=== PATIENT | female | born 1980 ===

== ENCOUNTER 2016-08-08 02:37 | Emergency (ER) | payer BC ==
--- NOTE | 2016-08-08 04:13 | ED ORDER SUMMARY ---
..... Patient: LAWRENCE FLORIAN OrderSheet [facility] VisitID: [id number] [address] [place] [address] 35y, F Registration Date/Time: 08/08/2016 ORDER SHEET Weight: 67.1 kg Allergies: Sulfa Antibiotics GENERAL ORDERS: UA-Culture if indicated Urgent (03:02 08/08/2016 Macarioden R.N. per protocol) (Ack 3:04 AMcQuoid ER Tech1) (3:14 AMcQuoid ER Tech1) MEDICATION ORDERS: Hydrocodone-APAP PO 5/325 mg (NOW) (04:10 08/08/2016 Melyssa PENALOZA) (Ack 4:12 RMarsden R.N.) (4:22 RMarsden R.N.) Levaquin PO 750 mg (NOW) (04:10 08/08/2016 Melyssa PENALOZA) (Ack 4:12 Hima R.N.) (4:22 RMshaynaden R.N.) IV FLUIDS: ORDER SHEET NOTES: [Electronically signed by Elaine Valdivia R.N. (05:38 08/08/2016)] [Electronically signed by Ari Pepper MD (23:45 08/10/2016)] [Electronically locked/signed by Elaine Valdivia R.N. (05:38 08/08/2016)]
--- NOTE | 2016-08-08 04:13 | ED NURSING NOTES ---
Clinical Report - Nurses [facility] [place] [address] [address] [place] [address] 08/08/2016 2:39 Patient: LAWRENCE FLORIAN TRIAGE Triage time 02:48. Acuity: LEVEL 3. Chief Complaint: PELVIC PAIN. 03:00 08/08/16. Alert. No acute distress. SEPSIS SCREEN: Sepsis Screen. Negative (no infection suspected/documented). MELISSA COMA SCORE: Melissa Coma Scale: 15- eyes open spontaneously (4); best verbal response- oriented x 4 (5); best motor response- obeys commands (6). --03:00 Elaine Valdivia R.N. 02:47 08/08/16. BP: 118/75 taken on the left arm, while sitting. HR: 80. RR: 14. O2 saturation: 100%. Temp: 98 F. Pain level now: 11/27. --03:00 Elaine Valdivia R.N. Weight: 67.1 kg. Height/Length: 68 inches. BMI: 22.5. --02:46 Elaine Valdivia R.N. Medications None. --02:57 Elaine Valdivia R.N. Allergies Sulfa Antibiotics. --02:57 Elaine Valdivia R.N. History Arrived by private vehicle. Historian: patient. Accompanied by mother. Onset. (Monday). ( Patient states she has persistent UTIs and yeast infections. She states she started having pain on Monday, and took some pills that she had from a previous UTI. She reports that medication "made it feel better for a little while and then it started hurting really bad".). She has had flank pain. ( urgency, frequency). Last oral intake by patient was dinner last night. PAST MEDICAL HX: Immunizations: up-to-date. ( Patient reports history of ovarian cysts.). SOCIAL HX: Never smoker. Occasional alcohol use. No drug use. FALL RISK ASSESSMENT: Fall risk assessment completed. No fall risk identified. NUTRITIONAL RISK ASSESSMENT: The nutritional risk assessment revealed no deficiencies. FUNCTIONAL ASSESSMENT: Functional assessment: no impairments noted. LEARNING NEEDS ASSESSMENT: The learning needs assessment revealed no barriers. SKIN INTEGRITY ASSESSMENT: Skin integrity risk assessment completed. No skin integrity risk identified. --03:00 Elaine Valdivia R.N. PROBLEMS: no known problems. ADDITIONAL SURGERIES: Breast Augmentation. . Knee Surgery. --02:58 Elaine Valdivia R.N. Interventions ID band on patient. To treatment room. --03:00 Elaine Valdivia R.N. PHYSICAL ASSESSMENT 03:01 08/08/16. Ambulatory to room. GENERAL / NEURO / PSYCH: Alert. Oriented X 4. Appears in no acute distress. HEENT: Mucous membranes are pink. RESPIRATORY: Respirations not labored. Breath sounds within normal limits. CVS: Capillary refill less than 2 seconds. GI / : Abdomen soft and nontender. Bowel sounds within normal limits. SKIN: Skin is warm and dry. --03:01 Elaine Valdivia R.N. NURSING PROGRESS NOTES 03:01 08/08/16. Patient gowned. Two patient identifiers checked. Call light placed in reach. Side rails up x 1. Bed placed in lowest position. Brakes of bed on. Patient ready for evaluation- chart flagged and notification provided. --03:01 Elaine Valdivia R.N. 04:06 08/08/16. BP: 110/69. HR: 71. RR: 15. O2 saturation: 98%. Temp: deferred. Pain level now: 9/10. --04:07 Elaine Valdivia R.N. 04:22 08/08/2016 Hydrocodone-APAP (Hydrocodone-Acetaminophen) PO 5/325 mg Tablets 1 tab given. Allergies verified, confirmed 5 rights and sedative warning given to the patient. --04:22 Elaine Valdivia R.N. 04:22 08/08/2016 Levaquin (Levofloxacin) PO Tablets 750 mg given. Allergies verified and confirmed 5 rights. --04:22 Elaine Valdivia R.N. 04:40 08/08/2016 Hydrocodone-APAP PO Response: no adverse reaction pain is improving. The patient feels better. 08/08/2016 04:42 BP: 112/79. HR: 72. RR: 14. O2 saturation: 100%. Pain level now: 5/10. --04:45 Elaine Valdivia R.N. 04:41 08/08/2016 Levaquin PO Response: no adverse reaction. 08/08/2016 04:42 BP: 112/79. HR: 72. RR: 14. O2 saturation: 100%. Pain level now: 07/27. --04:46 Elaine Valdivia R.N. DISPOSITION / DISCHARGE 04:43 08/08/16. No learning barriers present. Discharge instructions provided and reviewed with the patient. Reviewed warnings. Reviewed medication(s). Treatments reviewed. Reviewed diet. Patient verbalized understanding. Written instructions provided in Sinhala. The patient was discharged home and accompanied by parent. She left the Emergency Department ambulatory and via private vehicle. Parent driving. --04:43 Elaine Valdivia R.N. 04:42 08/08/16. BP: 112/79. HR: 72. RR: 14. O2 saturation: 100%. Temp: deferred. Pain level now: 07/27. --04:43 Elaine Valdivia R.N. Departure time: 04:44. --04:44 Elaine Valdivia R.N. Locked/Released at 08/08/2016 5:38 by Elaine Valdivia R.N.
--- NOTE | 2016-08-08 04:13 | ED CLINICAL REPORT ---
Clinical Report - Physicians/Mid Levels [facility] [address] [place] [address] 08/08/2016 2:39 Patient: LAWRENCE FLORIAN Time Seen: 03:17 Aug 08 2016. Arrived- By private vehicle. Historian- patient. CPT: ER phys charges level 4 (#[id number]). HISTORY OF PRESENT ILLNESS Chief Complaint: PELVIC PAIN. This started about 3 days [employer]; Onset. (Monday). ( Patient states she has persistent UTIs and yeast infections. She states she started having pain on Monday, and took some pills that she had from a previous UTI. She reports that medication "made it feel better for a little while and then it started hurting really bad".). She has had flank pain. ( urgency, frequency). Pt indicates that she had a recent yeast infection and it resolved with OTC medication. Shortly after started having dysuria and low abdominal cramping. NO vaginal discharge. and still present. The symptoms are described as moderate. Modifying factors- worsened by urination. Not relieved by anything. No pelvic pain, abnormal bleeding or vaginal discharge. She has had pain with urination and urgency of urination. The patient has had urinary frequency and hematuria. Similar symptoms previously: As bad. Diagnosis: pelvic pain, UTI and ovarian cyst. Recent medical care: Not recently seen/assessed. REVIEW OF SYSTEMS No nausea, vomiting, diarrhea, fever or chills. No sore throat, cough, difficulty breathing, chest pain or skin rash. All systems otherwise negative, except as recorded above. PAST HISTORY ( Breast Augmentation. . Knee Surgery. Ovarian cyst. Endometriosis). Urinary tract infection. Medications: None. Allergies: Sulfa Antibiotics. SOCIAL HISTORY Never smoker. Occasional alcohol use. No drug use. ADDITIONAL NOTES The nursing notes have been reviewed. PHYSICAL EXAM Vital Signs: 08/08/2016 02:47 BP: 118/75. HR: 80. RR: 14. O2 saturation: 100%. Temp: 98 F. Pain level now: 9/10. HEENT: Normal external inspection. ENT: Pharynx normal. Neck: Neck supple. CVS: Heart sounds normal. Respiratory: No respiratory distress. Breath sounds normal. Abdomen: Moderate tenderness in the suprapubic area and lower abdomen. No guarding. Bowel sounds normal. No mass. Back: Normal external inspection. No CVA tenderness. Skin: Normal skin color. No rash. Extremities: Extremities nontender. Neuro: Oriented X 3. LABS, X-RAYS, AND EKG Laboratory Tests: UA-Culture if indicated: (PERRY: 08/08/2016 02:58) ( MsgRcvd 08/08/2016 03:44) Final results Test Result Flag Units (Reference) URINE COLOR YELLOW URINE APPEARANCE TURBID URINE GLUCOSE NEGATIVE (NEGATIVE) URINE BILIRUBIN NEGATIVE (NEGATIVE) URINE KETONE NEGATIVE (NEGATIVE) URINE SPECIFIC GRAVITY 1.025 (1.010-1.030) URINE PH 6.0 (5.0-8.0) URINE PROTEIN 2+ (NEGATIVE) URINE UROBILINOGEN 0.2 EU/dL (0.2-1.0) URINE NITRITE POSITIVE (NEGATIVE) URINE BLOOD 3+ (NEGATIVE) URINE LEUK ESTERASE POSITIVE (NEGATIVE) URINE RBC >100 rbc/hpf (0-1) URINE WBC >100 wbc/hpf (0-1) URINE EPITHELIAL CELLS 0-1 EPI/hpf (0-5) URINE BACTERIA MODERATE (2+ TO 3+) (NONE SEEN) URINE COMMENT CULTURE INDICATED URINE CULTURES ARE SET-UP BASED ON THE FOLLOWING CRITERIA:POSITIVE NITRITEPOSITIVE LEUKOCYTE ESTERASEGREATER THAN 10 WHITE BLOOD CELLSMODERATE (2+) OR GREATER BACTERIA . PROGRESS AND PROCEDURES Course of Care: Vicodin 1 po Levaquin 750 mg po Patient is stable. Patient/family counseled. Disposition: Discharged. Condition: stable. CLINICAL IMPRESSION Acute urinary tract infection with cystitis. INSTRUCTIONS Drink plenty of fluids. No sexual contact. Warnings: Further evaluation is necessary. GENERAL WARNINGS: Return or contact your physician immediately if your condition worsens or changes unexpectedly, if not improving as expected, or if other problems arise. Prescription Medications: Hydrocodone/APAP 5mg / 325mg: take 1-2 orally every 6 hours as needed for pain. Dispense ten (10). No refill. Pyridium 200 mg: take 1 orally every 8 hours as needed for urinary problems. Dispense six (6). No refills. Substitution is permissible. Cipro 500 mg: take 1 tab orally every 12 hours for 7 days. Dispense fourteen (14). No refills. Substitution is permissible. Follow-up: Follow up with your doctor in two days if not better. Understanding of the discharge instructions verbalized by patient. Discharge instructions reviewed with and understanding was verbalized by parent. (Electronically signed by Ari Pepper MD 08/10/2016 23:45)
--- NOTE | 2016-08-08 04:13 | ED ORDER SUMMARY ---
..... Patient: LAWRENCE FLORIAN OrderSheet [facility] VisitID: [id number] [address] [place] [address] 35y, F Registration Date/Time: 08/08/2016 ORDER SHEET Weight: 67.1 kg Allergies: Sulfa Antibiotics GENERAL ORDERS: UA-Culture if indicated Urgent (03:02 08/08/2016 Macarioden R.N. per protocol) (Ack 3:04 AMcQuoid ER Tech1) (3:14 AMcQuoid ER Tech1) MEDICATION ORDERS: Hydrocodone-APAP PO 5/325 mg (NOW) (04:10 08/08/2016 Melyssa PENALOZA) (Ack 4:12 RMarsden R.N.) (4:22 RMarsden R.N.) Levaquin PO 750 mg (NOW) (04:10 08/08/2016 Melyssa PENALOZA) (Ack 4:12 Hima R.N.) (4:22 RMshaynaden R.N.) IV FLUIDS: ORDER SHEET NOTES: [Electronically signed by Elaine Valdivia R.N. (05:38 08/08/2016)] [Electronically signed by Ari Pepper MD (23:45 08/10/2016)] [Electronically locked/signed by Elaine Valdivia R.N. (05:38 08/08/2016)]
--- NOTE | 2016-08-08 04:13 | ED CLINICAL REPORT ---
Clinical Report - Physicians/Mid Levels [facility] [address] [place] [address] 08/08/2016 2:39 Patient: LAWRENCE FLORIAN Time Seen: 03:17 Aug 08 2016. Arrived- By private vehicle. Historian- patient. CPT: ER phys charges level 4 (#[id number]). HISTORY OF PRESENT ILLNESS Chief Complaint: PELVIC PAIN. This started about 3 days [employer]; Onset. (Monday). ( Patient states she has persistent UTIs and yeast infections. She states she started having pain on Monday, and took some pills that she had from a previous UTI. She reports that medication "made it feel better for a little while and then it started hurting really bad".). She has had flank pain. ( urgency, frequency). Pt indicates that she had a recent yeast infection and it resolved with OTC medication. Shortly after started having dysuria and low abdominal cramping. NO vaginal discharge. and still present. The symptoms are described as moderate. Modifying factors- worsened by urination. Not relieved by anything. No pelvic pain, abnormal bleeding or vaginal discharge. She has had pain with urination and urgency of urination. The patient has had urinary frequency and hematuria. Similar symptoms previously: As bad. Diagnosis: pelvic pain, UTI and ovarian cyst. Recent medical care: Not recently seen/assessed. REVIEW OF SYSTEMS No nausea, vomiting, diarrhea, fever or chills. No sore throat, cough, difficulty breathing, chest pain or skin rash. All systems otherwise negative, except as recorded above. PAST HISTORY ( Breast Augmentation. . Knee Surgery. Ovarian cyst. Endometriosis). Urinary tract infection. Medications: None. Allergies: Sulfa Antibiotics. SOCIAL HISTORY Never smoker. Occasional alcohol use. No drug use. ADDITIONAL NOTES The nursing notes have been reviewed. PHYSICAL EXAM Vital Signs: 08/08/2016 02:47 BP: 118/75. HR: 80. RR: 14. O2 saturation: 100%. Temp: 98 F. Pain level now: 9/10. HEENT: Normal external inspection. ENT: Pharynx normal. Neck: Neck supple. CVS: Heart sounds normal. Respiratory: No respiratory distress. Breath sounds normal. Abdomen: Moderate tenderness in the suprapubic area and lower abdomen. No guarding. Bowel sounds normal. No mass. Back: Normal external inspection. No CVA tenderness. Skin: Normal skin color. No rash. Extremities: Extremities nontender. Neuro: Oriented X 3. LABS, X-RAYS, AND EKG Laboratory Tests: UA-Culture if indicated: (PERRY: 08/08/2016 02:58) ( MsgRcvd 08/08/2016 03:44) Final results Test Result Flag Units (Reference) URINE COLOR YELLOW URINE APPEARANCE TURBID URINE GLUCOSE NEGATIVE (NEGATIVE) URINE BILIRUBIN NEGATIVE (NEGATIVE) URINE KETONE NEGATIVE (NEGATIVE) URINE SPECIFIC GRAVITY 1.025 (1.010-1.030) URINE PH 6.0 (5.0-8.0) URINE PROTEIN 2+ (NEGATIVE) URINE UROBILINOGEN 0.2 EU/dL (0.2-1.0) URINE NITRITE POSITIVE (NEGATIVE) URINE BLOOD 3+ (NEGATIVE) URINE LEUK ESTERASE POSITIVE (NEGATIVE) URINE RBC >100 rbc/hpf (0-1) URINE WBC >100 wbc/hpf (0-1) URINE EPITHELIAL CELLS 0-1 EPI/hpf (0-5) URINE BACTERIA MODERATE (2+ TO 3+) (NONE SEEN) URINE COMMENT CULTURE INDICATED URINE CULTURES ARE SET-UP BASED ON THE FOLLOWING CRITERIA:POSITIVE NITRITEPOSITIVE LEUKOCYTE ESTERASEGREATER THAN 10 WHITE BLOOD CELLSMODERATE (2+) OR GREATER BACTERIA . PROGRESS AND PROCEDURES Course of Care: Vicodin 1 po Levaquin 750 mg po Patient is stable. Patient/family counseled. Disposition: Discharged. Condition: stable. CLINICAL IMPRESSION Acute urinary tract infection with cystitis. INSTRUCTIONS Drink plenty of fluids. No sexual contact. Warnings: Further evaluation is necessary. GENERAL WARNINGS: Return or contact your physician immediately if your condition worsens or changes unexpectedly, if not improving as expected, or if other problems arise. Prescription Medications: Hydrocodone/APAP 5mg / 325mg: take 1-2 orally every 6 hours as needed for pain. Dispense ten (10). No refill. Pyridium 200 mg: take 1 orally every 8 hours as needed for urinary problems. Dispense six (6). No refills. Substitution is permissible. Cipro 500 mg: take 1 tab orally every 12 hours for 7 days. Dispense fourteen (14). No refills. Substitution is permissible. Follow-up: Follow up with your doctor in two days if not better. Understanding of the discharge instructions verbalized by patient. Discharge instructions reviewed with and understanding was verbalized by parent. (Electronically signed by Ari Pepper MD 08/10/2016 23:45)
--- NOTE | 2016-08-10 23:45 | ED MAR SUMMARY ---
..... Medication Administration Record [facility] [address] [place] [address] Patient: LAWRENCE FLORIAN Visit ID: [id number] 35y, F Weight: 67.1 kg Height/Length: 68 in BMI: 22.5 ALLERGIES: Sulfa Antibiotics Given 04:08/08/2016 Elaine Valdivia, R.N. Medication Administered: HYDROCODONE-APAP [PO] (HYDROCODONE-ACETAMINOPHEN), Dose: 1 tab 5/325 mg Tablets PO. Medication Ordered: Hydrocodone-APAP PO 5/325 mg (NOW). Given 04:08/08/2016 Elaine Valdivia, R.N. Medication Administered: LEVAQUIN [PO] (LEVOFLOXACIN), Dose: 750 mg Tablets PO. Medication Ordered: Levaquin PO 750 mg (NOW).
--- NOTE | 2016-08-10 23:45 | ED MAR SUMMARY ---
..... Medication Administration Record [facility] [address] [place] [address] Patient: LAWRENCE FLORIAN Visit ID: [id number] 35y, F Weight: 67.1 kg Height/Length: 68 in BMI: 22.5 ALLERGIES: Sulfa Antibiotics Given 04:08/08/2016 Elaine Valdivia, R.N. Medication Administered: HYDROCODONE-APAP [PO] (HYDROCODONE-ACETAMINOPHEN), Dose: 1 tab 5/325 mg Tablets PO. Medication Ordered: Hydrocodone-APAP PO 5/325 mg (NOW). Given 04:08/08/2016 Elaine Valdivia, R.N. Medication Administered: LEVAQUIN [PO] (LEVOFLOXACIN), Dose: 750 mg Tablets PO. Medication Ordered: Levaquin PO 750 mg (NOW).
--- NOTE | 2016-08-10 23:45 | ED DISCHARGE INSTRUCTIONS ---
Patient: LAWRENCE FLORIAN General Instructions [facility] VisitID: [id number] [place] [address] 35y, F Registration Date/Time: 08/08/2016 Acute urinary tract infection with cystitis. INSTRUCTIONS Drink plenty of fluids. No sexual contact. Warnings: Further evaluation is necessary. GENERAL WARNINGS: Return or contact your physician immediately if your condition worsens or changes unexpectedly, if not improving as expected, or if other problems arise. Prescription Medications: Hydrocodone/APAP 5mg / 325mg: take 1-2 orally every 6 hours as needed for pain. Dispense ten (10). No refill. Pyridium 200 mg: take 1 orally every 8 hours as needed for urinary problems. Dispense six (6). No refills. Substitution is permissible. Cipro 500 mg: take 1 tab orally every 12 hours for 7 days. Dispense fourteen (14). No refills. Substitution is permissible. Follow-up: Follow up with your doctor in two days if not better. Understanding of the discharge instructions verbalized by patient. Discharge instructions reviewed with and understanding was verbalized by parent. ADDITIONAL INFORMATION Bladder Infection,Female (Adult) A bladder infection ("cystitis" or "UTI") usually causes a constant urge to urinate and a burning when passing urine. Urine may be cloudy, smelly or dark. There may be pain in the lower abdomen. A bladder infection occurs when bacteria from the vaginal area enter the bladder opening (urethra). This can occur from sexual intercourse, wearing tight clothing, dehydration and other factors. Home Care: Drink lots of fluids (at least 6-8 glasses a day, unless you must restrict fluids for other medical reasons). This will force the medicine into your urinary system and flush the bacteria out of your body. Avoid sexual intercourse until your symptoms are gone. Avoid caffeine, alcohol and spicy foods. These can irritate the bladder. A bladder infection is treated with antibiotics. You may also be given Pyridium (generic = phenazopyridine) to reduce the burning sensation. This medicine will cause your urine to become a bright orange color. The orange urine may stain clothing. You may wear a pad or panty-liner to protect clothing. Preventing Future Infections: Always wipe from front to back after a bowel movement. Keep the genital area clean and dry. Drink plenty of fluids each day to avoid dehydration. Both sexual partners should wash before intercourse. Urinate right after intercourse to flush out the bladder. Wear cotton underwear and cotton-lined panty hose; avoid tight-fitting pants. If you are on control pills and are having frequent bladder infections, discuss with your doctor. Follow Up: Return to this facility or see your doctor if ALL symptoms are not gone after three days of treatment. Get Prompt Medical Attention if any of the following occur: Fever of 100.4F (38C) or higher, or as directed by your healthcare provider No improvement by the third day of treatment Increasing back or abdominal pain Repeated vomiting; unable to keep medicine down Weakness, dizziness or fainting Vaginal discharge Pain, redness or swelling in the labia (outer vaginal area) Hydrocodone Bitartrate, Acetaminophen Oral tablet What is this medicine? ACETAMINOPHEN; HYDROCODONE (a set a WERNER tya fen; jack droe KOE done) is a pain reliever. It is used to treat mild to moderate pain. How should I use this medicine? Take this medicine by mouth. Swallow it with a full glass of water. Follow the directions on the prescription label. If the medicine upsets your stomach, take the medicine with food or milk. Do not take more than you are told to take. Talk to your building serviceman regarding the use of this medicine in children. This medicine is not approved for use in children. What side effects may I notice from receiving this medicine? Side effects that you should report to your doctor or health reproductive healthcare assistant as soon as possible: allergic reactions like skin rash, itching or hives, swelling of the face, lips, or tongue breathing problems confusion feeling faint or lightheaded, falls stomach pain yellowing of the eyes or skin Side effects that usually do not require medical attention (report to your doctor or health reproductive healthcare assistant if they continue or are bothersome): nausea, vomiting stomach upset What may interact with this medicine? alcohol antihistamines isoniazid medicines for depression, anxiety, or psychotic disturbances medicines for sleep muscle relaxants naltrexone narcotic medicines (opiates) for pain phenobarbital ritonavir tramadol What if I miss a dose? If you miss a dose, take it as soon as you can. If it is almost time for your next dose, take only that dose. Do not take double or extra doses. Where should I keep my medicine? Keep out of the reach of children. This medicine can be abused. Keep your medicine in a safe place to protect it from theft. Do not share this medicine with anyone. Selling or giving away this medicine is dangerous and against the law. Store at room temperature between 15 and 30 degrees C (59 and 86 degrees F). Protect from light. Keep container tightly closed. Throw away any unused medicine after the expiration date. Discard unused medicine and used packaging carefully. Pets and children can be harmed if they find used or lost packages. What should I tell my health care provider before I take this medicine? They need to know if you have any of these conditions: brain tumor Crohn's disease, inflammatory bowel disease, or ulcerative colitis drink more than 3 alcohol-containing drinks per day drug abuse or addiction head injury heart or circulation problems kidney disease or problems going to the bathroom liver disease lung disease, asthma, or breathing problems an unusual or allergic reaction to acetaminophen, hydrocodone, other opioid analgesics, other medicines, foods, dyes, or preservatives or trying to get breast-feeding What should I watch for while using this medicine? Tell your doctor or health reproductive healthcare assistant if your pain does not go away, if it gets worse, or if you have new or a different type of pain. You may develop tolerance to the medicine. Tolerance means that you will need a higher dose of the medicine for pain relief. Tolerance is normal and is expected if you take the medicine for a long time. Do not suddenly stop taking your medicine because you may develop a severe reaction. Your body becomes used to the medicine. This does NOT mean you are addicted. Addiction is a behavior related to getting and using a drug for a non-medical reason. If you have pain, you have a medical reason to take pain medicine. Your doctor will tell you how much medicine to take. If your doctor wants you to stop the medicine, the dose will be slowly lowered over time to avoid any side effects. You may get drowsy or dizzy when you first start taking the medicine or change doses. Do not drive, use machinery, or do anything that may be dangerous until you know how the medicine affects you. Stand or sit up slowly. There are different types of narcotic medicines (opiates) for pain. If you take more than one type at the same time, you may have more side effects. Give your health care provider a list of all medicines you use. Your doctor will tell you how much medicine to take. Do not take more medicine than directed. Call emergency for help if you have problems breathing. The medicine will cause constipation. Try to have a bowel movement at least every 2 to 3 days. If you do not have a bowel movement for 3 days, call your doctor or health reproductive healthcare assistant. Too much acetaminophen can be very dangerous. Do not take Tylenol (acetaminophen) or medicines that contain acetaminophen with this medicine. Many non-prescription medicines contain acetaminophen. Always read the labels carefully. You have been given the following additional information: Bladder Infection, Female (Adult) Hydrocodone Bitartrate, Acetaminophen Oral tablet (Electronically signed by Ari Pepper MD 08/10/2016 23:45)
--- NOTE | 2016-08-10 23:45 | ED DISCHARGE INSTRUCTIONS ---
Patient: LAWRENCE FLORIAN General Instructions [facility] VisitID: [id number] [place] [address] 35y, F Registration Date/Time: 08/08/2016 Acute urinary tract infection with cystitis. INSTRUCTIONS Drink plenty of fluids. No sexual contact. Warnings: Further evaluation is necessary. GENERAL WARNINGS: Return or contact your physician immediately if your condition worsens or changes unexpectedly, if not improving as expected, or if other problems arise. Prescription Medications: Hydrocodone/APAP 5mg / 325mg: take 1-2 orally every 6 hours as needed for pain. Dispense ten (10). No refill. Pyridium 200 mg: take 1 orally every 8 hours as needed for urinary problems. Dispense six (6). No refills. Substitution is permissible. Cipro 500 mg: take 1 tab orally every 12 hours for 7 days. Dispense fourteen (14). No refills. Substitution is permissible. Follow-up: Follow up with your doctor in two days if not better. Understanding of the discharge instructions verbalized by patient. Discharge instructions reviewed with and understanding was verbalized by parent. ADDITIONAL INFORMATION Bladder Infection,Female (Adult) A bladder infection ("cystitis" or "UTI") usually causes a constant urge to urinate and a burning when passing urine. Urine may be cloudy, smelly or dark. There may be pain in the lower abdomen. A bladder infection occurs when bacteria from the vaginal area enter the bladder opening (urethra). This can occur from sexual intercourse, wearing tight clothing, dehydration and other factors. Home Care: Drink lots of fluids (at least 6-8 glasses a day, unless you must restrict fluids for other medical reasons). This will force the medicine into your urinary system and flush the bacteria out of your body. Avoid sexual intercourse until your symptoms are gone. Avoid caffeine, alcohol and spicy foods. These can irritate the bladder. A bladder infection is treated with antibiotics. You may also be given Pyridium (generic = phenazopyridine) to reduce the burning sensation. This medicine will cause your urine to become a bright orange color. The orange urine may stain clothing. You may wear a pad or panty-liner to protect clothing. Preventing Future Infections: Always wipe from front to back after a bowel movement. Keep the genital area clean and dry. Drink plenty of fluids each day to avoid dehydration. Both sexual partners should wash before intercourse. Urinate right after intercourse to flush out the bladder. Wear cotton underwear and cotton-lined panty hose; avoid tight-fitting pants. If you are on control pills and are having frequent bladder infections, discuss with your doctor. Follow Up: Return to this facility or see your doctor if ALL symptoms are not gone after three days of treatment. Get Prompt Medical Attention if any of the following occur: Fever of 100.4F (38C) or higher, or as directed by your healthcare provider No improvement by the third day of treatment Increasing back or abdominal pain Repeated vomiting; unable to keep medicine down Weakness, dizziness or fainting Vaginal discharge Pain, redness or swelling in the labia (outer vaginal area) Hydrocodone Bitartrate, Acetaminophen Oral tablet What is this medicine? ACETAMINOPHEN; HYDROCODONE (a set a WERNER tay fen; jack droe KOE done) is a pain reliever. It is used to treat mild to moderate pain. How should I use this medicine? Take this medicine by mouth. Swallow it with a full glass of water. Follow the directions on the prescription label. If the medicine upsets your stomach, take the medicine with food or milk. Do not take more than you are told to take. Talk to your cra officer regarding the use of this medicine in children. This medicine is not approved for use in children. What side effects may I notice from receiving this medicine? Side effects that you should report to your doctor or health resident care provider as soon as possible: allergic reactions like skin rash, itching or hives, swelling of the face, lips, or tongue breathing problems confusion feeling faint or lightheaded, falls stomach pain yellowing of the eyes or skin Side effects that usually do not require medical attention (report to your doctor or health resident care provider if they continue or are bothersome): nausea, vomiting stomach upset What may interact with this medicine? alcohol antihistamines isoniazid medicines for depression, anxiety, or psychotic disturbances medicines for sleep muscle relaxants naltrexone narcotic medicines (opiates) for pain phenobarbital ritonavir tramadol What if I miss a dose? If you miss a dose, take it as soon as you can. If it is almost time for your next dose, take only that dose. Do not take double or extra doses. Where should I keep my medicine? Keep out of the reach of children. This medicine can be abused. Keep your medicine in a safe place to protect it from theft. Do not share this medicine with anyone. Selling or giving away this medicine is dangerous and against the law. Store at room temperature between 15 and 30 degrees C (59 and 86 degrees F). Protect from light. Keep container tightly closed. Throw away any unused medicine after the expiration date. Discard unused medicine and used packaging carefully. Pets and children can be harmed if they find used or lost packages. What should I tell my health care provider before I take this medicine? They need to know if you have any of these conditions: brain tumor Crohn's disease, inflammatory bowel disease, or ulcerative colitis drink more than 3 alcohol-containing drinks per day drug abuse or addiction head injury heart or circulation problems kidney disease or problems going to the bathroom liver disease lung disease, asthma, or breathing problems an unusual or allergic reaction to acetaminophen, hydrocodone, other opioid analgesics, other medicines, foods, dyes, or preservatives or trying to get breast-feeding What should I watch for while using this medicine? Tell your doctor or health resident care provider if your pain does not go away, if it gets worse, or if you have new or a different type of pain. You may develop tolerance to the medicine. Tolerance means that you will need a higher dose of the medicine for pain relief. Tolerance is normal and is expected if you take the medicine for a long time. Do not suddenly stop taking your medicine because you may develop a severe reaction. Your body becomes used to the medicine. This does NOT mean you are addicted. Addiction is a behavior related to getting and using a drug for a non-medical reason. If you have pain, you have a medical reason to take pain medicine. Your doctor will tell you how much medicine to take. If your doctor wants you to stop the medicine, the dose will be slowly lowered over time to avoid any side effects. You may get drowsy or dizzy when you first start taking the medicine or change doses. Do not drive, use machinery, or do anything that may be dangerous until you know how the medicine affects you. Stand or sit up slowly. There are different types of narcotic medicines (opiates) for pain. If you take more than one type at the same time, you may have more side effects. Give your health care provider a list of all medicines you use. Your doctor will tell you how much medicine to take. Do not take more medicine than directed. Call emergency for help if you have problems breathing. The medicine will cause constipation. Try to have a bowel movement at least every 2 to 3 days. If you do not have a bowel movement for 3 days, call your doctor or health resident care provider. Too much acetaminophen can be very dangerous. Do not take Tylenol (acetaminophen) or medicines that contain acetaminophen with this medicine. Many non-prescription medicines contain acetaminophen. Always read the labels carefully. You have been given the following additional information: Bladder Infection, Female (Adult) Hydrocodone Bitartrate, Acetaminophen Oral tablet (Electronically signed by Ari Pepper MD 08/10/2016 23:45)
--- NOTE | 2016-08-10 23:45 | ED MED RECONCILIATION SUMMARY ---
Patient: LAWRENCE FLORIAN Medication Reconciliation Report [facility] VisitID: [id number] [address] [place] [address] 35y, F Registration Date/Time: 08/08/2016 Weight: 67.1 kg Height/Length: 68 in. BMI: 22.5 ALLERGIES: Sulfa Antibiotics The patient's Home Medications are listed below: NONE. The source(s) of the original Home Medication information: Not obtained. The following Medications were given to the patient in the Emergency Department: Hydrocodone-APAP [PO] PO 1 tab, administered: 08/08/2016 4:22:00 AM Levaquin [PO] PO 750 mg, administered: 08/08/2016 4:22:00 AM The following Medications were prescribed to the patient: Hydrocodone/APAP 5mg / 325mg: take 1-2 orally every 6 hours as needed for pain. Dispense ten (10). No refill. -- Ari Pepper MD Pyridium 200 mg: take 1 orally every 8 hours as needed for urinary problems. Dispense six (6). No refills. Substitution is permissible. -- Ari Pepper MD Cipro 500 mg: take 1 tab orally every 12 hours for 7 days. Dispense fourteen (14). No refills. Substitution is permissible. -- Ari Pepper MD
--- NOTE | 2016-08-10 23:45 | ED MED RECONCILIATION SUMMARY ---
Patient: LAWRENCE FLORIAN Medication Reconciliation Report [facility] VisitID: [id number] [address] [place] [address] 35y, F Registration Date/Time: 08/08/2016 Weight: 67.1 kg Height/Length: 68 in. BMI: 22.5 ALLERGIES: Sulfa Antibiotics The patient's Home Medications are listed below: NONE. The source(s) of the original Home Medication information: Not obtained. The following Medications were given to the patient in the Emergency Department: Hydrocodone-APAP [PO] PO 1 tab, administered: 08/08/2016 4:22:00 AM Levaquin [PO] PO 750 mg, administered: 08/08/2016 4:22:00 AM The following Medications were prescribed to the patient: Hydrocodone/APAP 5mg / 325mg: take 1-2 orally every 6 hours as needed for pain. Dispense ten (10). No refill. -- Ari Pepper MD Pyridium 200 mg: take 1 orally every 8 hours as needed for urinary problems. Dispense six (6). No refills. Substitution is permissible. -- Ari Pepper MD Cipro 500 mg: take 1 tab orally every 12 hours for 7 days. Dispense fourteen (14). No refills. Substitution is permissible. -- Ari Pepper MD
== END 2016-08-08 05:44 | disposition home or self-care (01) ==
LOC: ED SRH 02:37
DX: N30.00 Acute cystitis without hematuria (principal); Z88.2 Allergy status to sulfonamides; Z88.1 Allergy status to other antibiotic agents
CPT/HCPCS: 90004; 90148; 90469